=== PATIENT | female | born 1975 | race American Indian/Alaskan Native ===

== ENCOUNTER 2017-09-12 06:27 | Day surgery (SDC) | payer MEDICARE, OTHER ==
[2017-09-08 14:10] VITALS: BMI 37.5
[2017-09-12 07:31] VITALS: RESP 18
[2017-09-12] MEDS ORDERED: Midazolam 2 MG/2 ML VIAL ONE (07:32)
[2017-09-12] MEDS ORDERED: Propofol 10 mg/ml Inj (20 ML) ONE ×4 (07:32→10:09)
[2017-09-12] MEDS ORDERED: Succinylcholine 200 mg/10 ml Inj IV ONE (07:39)
[2017-09-12] MEDS ORDERED: Propofol 10 mg/ml 1,000 MG/100 ML VIAL ONE ×2 (07:43→07:44)
[2017-09-12] MEDS ORDERED: Lidocaine 1%/Epinephrine 1:100000 30 ml vial IJ ONE ×2 (08:10)
[2017-09-12] MEDS ORDERED: Labetalol 5 mg/ml Inj 20ML ONE (08:18)
[2017-09-12] MEDS ORDERED: HYDROmorphone 0.5 mg/0.5 ml ISec IVP PRN (10:28)
[2017-09-12] MEDS ORDERED: HYDROmorphone 0.5 mg/0.5 ml ISec IVP ONE ×3 (10:30→11:00)
[2017-09-12] MEDS ORDERED: Lactated Ringer's 1,000 ML IV SCH (10:30)
[2017-09-12] MEDS ORDERED: HYDROmorphone 0.5 mg/0.5 ml ISec ONE ×3 (10:31→11:04)
--- NOTE | 2017-09-12 11:08 | RAD ---
Date of service: 09/12/2017 PROCEDURE: Fluoroscopy up to 1 hour HISTORY: SPINAL CORD BATTERY CHANGE COMPARISON: TECHNIQUE: 316 seconds of fluoro time. Four mGy cumulative dose. Fourteen images submitted FINDINGS: The study shows epidural leads in the sacrum. Stimulator device seen over the left iliac region. IMPRESSION: As above
[2017-09-12 11:35] VITALS: BP 153/90; PULSE 81; TEMP 98.2; O2SAT 98
--- NOTE | 2017-09-12 15:54 | OP ---
PROCEDURE DATE: 09/12/2017 TYPE OF SURGERY: 1. Replacement of spinal cord stimulator and internal pulse generator. 2. Implantation of retrograde Octrode Medtronic spinal cord stimulator lead. 3. Fluoroscopic guidance. 4. Intraoperative programming. PREOPERATIVE DIAGNOSES: 1. Chronic pain syndrome. 2. Chronic pelvic pain. 3. Post-laminectomy syndrome. POSTOPERATIVE DIAGNOSES: 1. Chronic pain syndrome. 2. Chronic pelvic pain. 3. Post-laminectomy syndrome. TYPE OF ANESTHESIA: Local anesthesia and conscious sedation. SURGEON: Tulio Hodges MD ANESTHESIOLOGIST: Wilber Muro MD. BLOOD LOSS: Approximately 10 mL. METHOD OF SURGERY: The patient signed an informed consent form in the preop area and after all risks and complications were explained and all questions were answered. An IV was started in the preop area and IV fluid administration was continued throughout the procedure. Blood pressure, heart rate, pulse oximetry was monitored throughout the procedure. Intravenous sedation appropriate to the procedure was administered by the anesthesiologist and was accurately reflected in the patient chart. A 2 g of IV Ancef was administered preoperatively. The patient's spine was surveyed under fluoroscopic visualization and appropriate anatomical landmarks were identified. Replacement of Medtronic RestoreULTRA internal pulse generator - After appropriate local anesthesia using 1% lidocaine with epinephrine and mixed with sodium bicarbonate as a buffer, 6 cm horizontal incision was made in the right gluteal area over the old internal pulse generator. The skin was dissected down to the deep fascia then the internal pulse generator was retrieved. At this point, the internal pulse generator was retrieved outside of the incision and it was disconnected from the old lead as its battery was and was not responding to any charging. At this point, the leads were connected to the new Medtronic Intellis rechargeable battery and intraoperative programming was done. At this point, the patient was getting coverage only to her buttocks area and legs and she was still missing stimulation in her pelvic area and lower abdomen, which is desired area. At this point, a decision was made with the patient to implant another lead. Implantation of retrograde Octrode Medtronic spinal cord stimulator lead - After appropriate local anesthesia with 1% lidocaine with epinephrine, a midline lumbar incision was made in the lower lumbar area above L4-L5 interlaminar spaces and through this incision, a 4.5 inch Touhy curved needle was inserted in a retrograde fashion into the L5-S1 epidural space. After negative aspiration for cerebrospinal fluid or blood, the epidural space was identified with loss of resistance technique and after negative aspiration of cerebrospinal fluid or blood, an Octrode spinal cord stimulator lead was inserted through the retrograde Tuohy needle and was advanced in a retrograde fashion to the posterior epidural space down to the sacral area. Intraoperative testing was done and patient received good coverage of her lower abdomen and pelvic area. At this point, the needle was removed under direct fluoroscopic visualization making sure that the lead did not move and after removal of the needle, the lead was anchored to the deep fascia using 2-0 Nurolon suture, two of them. Then the lead was tunneled to the right gluteal bucket and one of the two leads that was not covering her abdomen was disconnected from the battery and the new lead was connected instead. Again, at this point, intraoperative programming was repeated and patient got a great coverage of her lower abdomen, pelvic area and for the desired area, patient was having at this point. Patient was placed back on sedation and the two midline incision and right gluteal incision were closed using 2-0 Vicryl and Dermabond for right gluteal incision and skin hunter for midline incision. Both incisions were covered with sterile dressing. The patient tolerated the procedure very well and was in good condition at the conclusion of the procedure. COMPLICATIONS: None. DISPOSITION: 1. The patient was discharged to recovery room in a good condition. 2. Discharge instructions were provided and explained. 3. Call for any questions or concerns. 4. Apply ice pack to the incision sites on top of the dressing. 5. The patient to return to the office in 10 to 14 days for skin staple removal. Tulio Hodges MD
== END 2017-09-12 12:00 | disposition home or self-care (01) ==
LOC: SDS 06:27
PROVIDERS: ATTEND Specialist
DX: G89.4 Chronic pain syndrome (principal); M96.1 Postlaminectomy syndrome, not elsewhere classified; R10.2 Pelvic and perineal pain
CPT/HCPCS: 63650; 63685; 95971; J0330; J0690; J1170; J1885; J2001; J2250; J2405; J2704 ×2; J3010; J7120